=== PATIENT | male | born 1970 | race African-American/Black ===

== ENCOUNTER 2017-01-28 07:01 | Emergency (ER) | payer OTHER ==
--- NOTE | ~2017-01-28 | CT4 ---
[facility] A Service of [facility] RADIOLOGY TEXT RESULTS PATIENT: SARA PATEL LOCATION: [facility] : [id number] UNIT #: [id number] AGE: [address]: Perez Irizarry MD SEX: M ORDER DR: [id number] [facility] [address] [facility]. [place], [place] [address] [id number] MR#: [id number] Acc #: [id number] NAME: SARA PATEL. : 1970 SEX: M STUDY DATE/TIME: 01/28/2017 7:30 UNIT: [facility] ROOM: STUDY DESCRIPTION: CT Abd and Pelv Wo Cont Attending Physician: Perez Irizarry M.D. Ordering Physician: Perez Irizarry M.D. Primary Care Physician: No Primary Care Physician MEDICAL IMAGING REPORT This report is preliminary unless electronic signature is present EXAM CT abdomen and pelvis without contrast 01/28/2017 HISTORY 46-year-old male with bilateral lower quadrant abdominal pain for 3 days. Nausea and vomiting. COMPARISON None. TECHNIQUE Helical scan performed through the abdomen and pelvis without oral or IV contrast. Coronal and sagittal reformatted images. This CT exam was performed with one or more of the following radiation dose reduction techniques: automatic control, adjustment of mA and/or kV according to patient size, and iterative reconstruction. FINDINGS Visualized lung bases are unremarkable. The liver, spleen, pancreas, gallbladder, and both adrenal glands, and both kidneys are within normal limits allowing for lack of IV contrast. No urinary tract stones or hydronephrosis. Abdominal aorta normal in course and caliber with scattered atherosclerotic calcification. Small bowel is unremarkable without obstruction. Appendix is normal. Uncomplicated descending and sigmoid colonic diverticulosis. Colon otherwise unremarkable. No free fluid or free air. Urinary bladder and prostate gland are unremarkable. No free pelvic fluid. No acute bony abnormality. IMPRESSION [facility] A Service of [facility] RADIOLOGY TEXT RESULTS PATIENT: SARA PATEL LOCATION: [facility] : [id number] UNIT #: [id number] AGE: [address]: Perez Irizarry MD SEX: M ORDER DR: 1. No acute abdominal or pelvic findings. 2. Negative for urinary tract stones or hydronephrosis. 3. Normal appendix. 4. Uncomplicated descending and sigmoid colonic diverticulosis. Dictated by... Mahad Britt M.D. THIS IS AN ELECTRONICALLY VERIFIED REPORT Mahad Britt M.D. at 01/29/2017 6:07 AM SPIKE/denny TD: 01/29/2017 05:13 JOB #: [id number] MEDICAL IMAGING REPORT COPY
[2017-01-28 06:50] LABS: BASOPHIL% 0.6 % (0-2.5); EOSINOPHIL% 0.4 % (0.0-7.0); HEMATOCRIT 52.8 % (38.0-50.0); HEMOGLOBIN 17.3 gm/dL (13.0-16.0); LYMPHOCYTE# 1.5 X10e3 (1.0-3.5); LYMPHOCYTE% 24.5 % (17.0-45.0); MEAN CELL VOLUME 85.8 FL (83-96); MEAN CORPUSCULAR HEMOGLOBIN 28.2 PG (28-34); MEAN CORPUSCULAR HGB CONC 32.8 g/dL (30-36); MEAN PLATELET VOLUME 8.1 FL (6.5-11.5); MONOCYTE# 0.4 X10e3 (0-1.0); MONOCYTE% 6.1 % (3.0-12.0); NEUTROPHIL# 4.2 X10e3 (1.5-7.1); NEUTROPHIL% 68.4 % (40-75); PLATELET COUNT 238 X10e3 (140-420); RED BLOOD COUNT 6.15 X10e (3.90-5.60); RED CELL DISTRIBUTION WIDTH 13.4 % (11.0-15.5); WHITE BLOOD COUNT 6.2 X10e3 (4.0-10.5)
[2017-01-28 06:51] LABS: DIFF IND NO
[2017-01-28 07:21] LABS: ALKALINE PHOSPHATASE 103 U/L (32-92); ALT (SGPT) 17 U/L (10-40); AMYLASE 17 U/L (0-46); AST (SGOT) 31 U/L (10-42); BILIRUBIN, DIRECT 0.2 mg/dL (0.0-0.2); BILIRUBIN,INDIRECT 0.9 mg/dL (0.0-0.9); BILIRUBIN,TOTAL 1.1 mg/dL (0.2-2.0); BLOOD UREA NITROGEN 20 mg/dL (9-23); BUN/CREATININE RATIO 18.18; CALCIUM SERUM 9.6 mg/dL (8.4-10.2); CARBON DIOXIDE 33 mmol/L (22-31); CHLORIDE 85 mmol/L (100-111); CREATININE SERUM 1.1 mg/dL (0.6-1.4); GLOM FILT RATE Estimated ABOVE60 mL/min (>60); GLUCOSE FASTING 158 mg/dL (70-110); LIPASE 11 U/L (22-51); POTASSIUM 3.1 mmol/L (3.5-5.1); PROTEIN TOTAL SERUM 8.5 g/dL (6.0-8.3); SODIUM 133 mmol/L (135-145)
== END 2017-01-28 08:57 | disposition home or self-care (01) ==
LOC: CED 07:01
PROVIDERS: Emergency Medicine
DX: R10.84 Generalized abdominal pain (principal); R11.2 Nausea with vomiting, unspecified
CPT/HCPCS: 36415; 74176; 80048; 80076; 82150; 83690; 85025; 96361; 96374; 96375; 99284; J2270; J2405

== ENCOUNTER 2017-02-17 16:01 | Emergency (ER) | payer OTHER ==
[2017-02-17 14:50] LABS: BASOPHIL% 0.5 % (0-2.5); EOSINOPHIL% 0.1 % (0.0-7.0); HEMATOCRIT 54.7 % (38.0-50.0); LYMPHOCYTE# 1.1 X10e3 (1.0-3.5); LYMPHOCYTE% 19.5 % (17.0-45.0); MEAN CELL VOLUME 84.9 FL (83-96); MEAN PLATELET VOLUME 8.2 FL (6.5-11.5); MONOCYTE# 0.3 X10e3 (0-1.0); MONOCYTE% 5.8 % (3.0-12.0); NEUTROPHIL# 4.1 X10e3 (1.5-7.1); NEUTROPHIL% 74.1 % (40-75); PLATELET COUNT 234 X10e3 (140-420); RED BLOOD COUNT 6.44 X10e (3.90-5.60); RED CELL DISTRIBUTION WIDTH 13.3 % (11.0-15.5); WHITE BLOOD COUNT 5.5 X10e3 (4.0-10.5)
[2017-02-17 14:52] LABS: DIFF IND NO
[2017-02-17 15:12] LABS: ALBUMIN SERUM 4.7 g/dL (3.5-5.0); BILIRUBIN, DIRECT 0.1 mg/dL (0.0-0.2); BILIRUBIN,INDIRECT 0.6 mg/dL (0.0-0.9); BILIRUBIN,TOTAL 0.7 mg/dL (0.2-2.0); CALCIUM SERUM 9.5 mg/dL (8.4-10.2); GLOM FILT RATE Estimated 104.9 mL/min (>60); POTASSIUM 3.4 mmol/L (3.5-5.1); PROTEIN TOTAL SERUM 8.3 g/dL (6.0-8.3)
== END 2017-02-17 18:08 | disposition home or self-care (01) ==
LOC: CED 16:01
DX: R11.10 Vomiting, unspecified (principal); F41.9 Anxiety disorder, unspecified
CPT/HCPCS: 36415; 80048; 80076; 83690; 85025; 96361; 96374; 99284; J2405